=== PATIENT | female | born 1980 | race Caucasian/White ===

== ENCOUNTER 2018-11-27 17:02 | Emergency (ER) | payer OTHER ==
[2016-02-01 17:33] VITALS: BP 144/89
[2018-11-27] MEDS ORDERED: IBUPROFEN 400 MG TABLET PO ONE (18:07)
--- NOTE | 2018-12-14 13:26 | Diagnostic Imaging Report ---
MALCOLM FITZPATRICK [facility] [address] Formerly [facility], [facility] [address] [place], [place]. [address] Report Submission Date: Nov 27, 2018 5:55:00 PM CDT Patient Study Name: MARSHALL CHANEL Date: Nov 27, 2018 5:23:48 PM CDT Modality Type: DX Gender: F Description: FOOT 3 VIEWS OR MORE : 84 Institution: [facility] Physician: MALCOLM FITZPATRICK Right foot, three views. History: LATERAL PAIN OF THE RIGHT FOOT X 2 WEEKS; NO KNOWN INJURY Findings: The osseous structures are intact without acute fracture. The joint space and alignment are normal. There is no soft tissue swelling. Impression: 1. No acute osseous abnormality. Electronically signed on Nov 27, 2018 5:55:00 PM CDT by: Quentin CHATTERJEE
== END 2018-11-27 18:30 ==
LOC: ED 17:02
DX: M79.672 Pain in left foot (principal)
CPT/HCPCS: 73630; 99282; 99283